=== PATIENT | female | born 1940 | race Caucasian/White ===

== ENCOUNTER 2017-09-06 13:15 | Inpatient (IN) | payer OTHER ==
[~2017-09-06] VITALS: Ht 167.6 cm; Wt 81.6 kg
--- NOTE | ~2017-09-06 | EEG ---
[facility] [place] [place] [address] ELECTROENCEPHALOGRAM Name: SE MOHAMUD Room #: 461-P ADM IN M.R.#: [id number] Admission: 09/06/17 Attend Phys: Maria Esther Moser Discharge: Date of : 44 Report #: [id number] THIS REPORT FOR: //name// CC: Maria Esther Mcgill DATE OF SERVICE: 09/07/2017 This patient is being evaluated for syncope. EEG was done by placing the electrodes by standard 10-20 system of electrode placement. Both referential and sequential montages were used for recording. Background activity in this patient's EEG is about 10 Hz and 30 microvolts. The patient went to sleep that is associated with bilaterally symmetrical sleep spindle and vertex sharp waves. Photic stimulation was unremarkable. Throughout the record, no active epileptiform activity was noticed. IMPRESSION: This patient's EEG is intermixed with moderate amount of theta range slowing. That is a nonspecific finding which can occur with dementia, encephalopathy, effect of psychotropic medication, etc. Clinical correlation is recommended. By: [id number] Matt Martinez MD /nt
--- NOTE | ~2017-09-06 | 2DMMODE ---
[facility] [address] [place] [address] 2 D/M-MODE ECHOCARDIOGRAM Name: SE MOHAMUD Room #: 461-P ADM IN M.R.#: [id number] Admission: 09/06/17 Attend Phys: Maria Esther Castaneda Discharge: Date of : 44 Date of Service: 09/07/17 1041 Report #: [id number] THIS REPORT FOR: //name// APPROVED REPORT Study performed: 09/07/2017 09:36:19 EXAM: Comprehensive 2D, Doppler, and color-flow Echocardiogram Patient Location: Echo lab Room #: [facility] Status: routine BSA: 1.89 HR: 78 bpm BP: 160/74 mmHg Rhythm: NSR Other Information Study Quality: Good Indications Syncope. Hx: HLP, CVA 2D Dimensions RVDd: 34.74 mm LVEF(%): 54.53 (>50%) IVSd: 11.80 (7-11mm) LVOT Diam: 18.47 (18-24mm) LVDd: 43.17 mm PWd: 12.21 (7-11mm) Ascending Ao: 30.10 (22-36mm) LVDs: 31.07 (25-40mm) Aortic Root: 29.85 mm Desir's LVEF: 54.53 % Volumes Left Atrial Volume (Systole) Single Plane 4CH: 83.65 mL Single Plane 2CH: 67.98 mL LA ESV Index: 43.00 mL/m2 Aortic Valve AoV Peak Erich.: 1.82 m/s AO Peak Gr.: 13.32 mmHg LVOT Max P.05 mmHg LVOT Max V: 1.33 m/s CARLI Vmax: 1.95 cm2 Mitral Valve E/A Ratio: 1.5 MV Decel. Time: 135.70 ms [facility] [place] [address] 2 D/M-MODE ECHOCARDIOGRAM Name: CADE,SE Room #: 461-P ADM IN M.R.#: [id number] Admission: 09/06/17 Attend Phys: Maria Esther Castaneda Discharge: Date of : 44 Date of Service: 09/07/17 1041 Report #: [id number] MV E Max Erich.: 1.41 m/s MV A Erich.: 0.95 m/s MV PHT: 39.35 ms IVRT: 65.74 ms Pulmonary Valve PV Peak Erich.: 0.95 m/s PV Peak Gr.: 3.59 mmHg Pulmonary Vein P Vein S: 0.75 m/s P Vein D: 0.77 m/s P Vein S/D Ratio: 0.97 Tricuspid Valve TR Peak Erich.: 3.23 m/s RAP Estimate: 5.00 mmHg TR Peak Gr.: 41.85 mmHg PA Pressure: 47.00 mmHg Left Ventricle The left ventricle is normal size. There is normal LV segmental wall motion. Mild concentric left ventricular hypertrophy. Left ventricular systolic function is normal. LVEF is 60-65%. Right Ventricle The right ventricle is normal size. The right ventricular systolic function is normal. Atria Left atrium is moderately dilated. The right atrium size is normal. Aortic Valve Aortic valve is calcified. Trace aortic regurgitation. There is no aortic valvular stenosis. Mitral Valve Mitral valve leaflets are mildly thickened. Moderate mitral annular calcification. Moderate mitral regurgitation. No evidence of mitral valve stenosis. Tricuspid Valve The tricuspid valve is normal in structure. Mild tricuspid regurgitation. Moderate pulmonary hypertension with an estimated PAP of 45-50mmHg. Pulmonic Valve [facility] [address] [place] [address] 2 D/M-MODE ECHOCARDIOGRAM Name: ES MOHAMUD Room #: 461-P [facility] IN M.R.#: [id number] Admission: 09/06/17 Attend Phys: Maria Esther Castaneda Discharge: Date of : 44 Date of Service: 09/07/17 1041 Report #: [id number] The pulmonary valve is normal in structure. Trace pulmonic regurgitation. Great Vessels The aortic root is normal in size. The ascending aorta is normal in size. IVC is normal in size and collapses >50% with inspiration. Pericardium There is no pericardial effusion. <Conclusion> The left ventricle is normal size. LVEF is 60-65%. Left atrium is moderately dilated. Aortic valve is calcified. Trace aortic regurgitation. Mitral valve leaflets are mildly thickened. Moderate mitral annular calcification. Moderate mitral regurgitation. No evidence of mitral valve stenosis. The tricuspid valve is normal in structure. Mild tricuspid regurgitation. Moderate pulmonary hypertension with an estimated PAP of 45-50mmHg. The pulmonary valve is normal in structure. Trace pulmonic regurgitation. There is no pericardial effusion. <ELECTRONICALLY SIGNED> By: Cj Hylton MD 09/07/17 [phone] Cj Hylton MD /INF
--- NOTE | ~2017-09-06 | EKG ---
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1940 Requested By: Edmundo Levi Order Number: [id number] MD: Sterling Garcia Measurements Intervals [place] Rate: 69 P: 56 VA: 168 QRS: 23 QRSD: 89 T: 39 QT: 470 QTc: 504 Interpretive Statements Sinus rhythm Borderline low voltage, extremity leads Anteroseptal infarct, old Prolonged QT interval No previous ECG available for comparison Electronically Signed On 09-07-2017 8:38:36 CDT by Sterling Garcia [email or web address] <ELECTRONICALLY SIGNED> By: Sterling Garcia MD, [facility] 09/07/17 0838 [id number] Sterling Garcia MD, [facility] /EPI
[2017-09-06 13:27] VITALS: BP 171/60
[2017-09-06] MEDS ORDERED: UNICOMPLEX M TA1 TA1 PO (13:38)
[2017-09-06] MEDS ORDERED: GABAPENTIN 100100 MG PO (13:39)
[2017-09-06] MEDS ORDERED: SYNTHROID88 MCG PO (13:39)
[2017-09-06] MEDS ORDERED: NYAMYC15 GM TOP (13:40)
[2017-09-06] MEDS ORDERED: SERTRALINE HCL50 MG PO (13:40)
[2017-09-06] MEDS ORDERED: NORPACE CR150 MG PO (13:40)
[2017-09-06] MEDS ORDERED: KETOCONAZOLE15 GM TOP (13:41)
[2017-09-06] MEDS ORDERED: PLAVIX 75 MG TA75 M1 PO (13:41)
[2017-09-06] MEDS ORDERED: CHILDREN'S ASPI81 MG PO (13:42)
[2017-09-06] MEDS ORDERED: NAMENDA 5 MG TAB5 M1 PO (13:42)
[2017-09-06] MEDS ORDERED: SEROQUEL 25 MG25 M1 PO (13:43)
[2017-09-06] MEDS ORDERED: ALLOPURINOL 10100 M1 PO (13:44)
[2017-09-06] MEDS ORDERED: LIPITOR20 MG PO (13:44)
[2017-09-06] MEDS ORDERED: IRON325 PO (13:45)
[2017-09-06] MEDS ORDERED: OMEPRAZOLE20 MG PO (13:45)
[2017-09-06] MEDS ORDERED: FLONASE 0.05%50 MCG NASAL (13:46)
[2017-09-06] MEDS ORDERED: VERAPAMIL E.R240 M1 PO (13:48)
[2017-09-06] MEDS ORDERED: ULTRAM 50MG TAB50 MG PO (13:48)
[2017-09-06 14:05] LABS: URINE BILIRUBIN NEGATIVE (Negative); URINE BLOOD NEGATIVE (Negative); URINE CLARITY CLEAR; URINE COLOR YELLOW; URINE GLUCOSE-RANDOM* NEGATIVE (Negative); URINE KETONES NEGATIVE (Negative); URINE LEUKOCYTES-REFLEX NEGATIVE (Negative); URINE NITRITE-REFLEX NEGATIVE (Negative); URINE PROTEIN (DIPSTICK) TRACE (Negative); URINE SPECIFIC GRAVITY >= 1.030 (1.005-1.035); URINE UROBILINOGEN 0.2 E.U./dl (0.2-1.0)
[2017-09-06 15:00] LABS: ABSOLUTE NEUTROPHILS 4.5 thou/uL (1.4-8.2); BASOPHILS 0.6 % (0.0-2.0); EOSINOPHILS 4.6 % (0.0-3.0); HEMATOCRIT 33.6 % (37.0-47.0); LYMPHOCYTES 17.2 % (24.0-44.0); MCH 29.4 pg (26.0-34.0); MCHC 32.6 g/dL (28.0-37.0); MCV 90.2 fL (80.0-100.0); PLATELET COUNT 166 thou/uL (150-400); POLYS 71.6 % (36.0-66.0); RBC 3.73 mil/uL (4.20-5.00); RDW 17.1 % (10.5-14.5); WBC 6.3 thou/uL (4.0-11.0)
[2017-09-06 15:09] LABS: ANION GAP 10 mmol/L (7-16); BUN 30 mg/dL (7-18); CALCIUM 8.7 mg/dL (8.5-10.1); CHLORIDE 106 mmol/L (98-107); CO2 29 mmol/L (21-32); CREATININE 1.4 mg/dL (0.6-1.0); GLUCOSE 131 mg/dL (74-106); POTASSIUM 3.9 mmol/L (3.5-5.1); SODIUM 145 mmol/L (136-145)
[2017-09-06 15:17] LABS: ALBUMIN 3.7 g/dL (3.4-5.0); SGOT 21 U/L (15-37); SGPT 21 U/L (30-65); TOTAL BILIRUBIN 0.3 mg/dL (<0.1-1.0); TOTAL PROTEIN 7.1 g/dL (6.4-8.2); TROPONIN-I <0.06 ng/mL (<0.06)
[2017-09-06 16:54] VITALS: BP 158/62
[2017-09-06 17:45] VITALS: BP 178/71
[2017-09-06 20:00] VITALS: BP 151/60
[2017-09-07 04:00] VITALS: BP 194/79
[2017-09-07 07:45] VITALS: BP 160/74
[2017-09-07 17:00] VITALS: BP 120/69
[2017-09-07 19:52] VITALS: BP 173/65
[2017-09-08 04:08] VITALS: BP 180/72
[2017-09-08 07:40] VITALS: BP 153/62
[2017-09-08] MEDS ORDERED: SERTRALINE HCL50 MG PO (10:07)
[2017-09-08 13:36] VITALS: BP 153/62
[2017-09-08 15:30] VITALS: BP 153/62
== END 2017-09-08 18:32 | disposition home or self-care (01) | DRG 312 ==
LOC: ER 13:15 → 4W 15:58 → EROBS 15:58 → 4W 17:12 → ENTRNSPT 09-08 17:56 → 4W 09-08 18:32
PROVIDERS: Emergency Medicine
DX: R55 Syncope and collapse (principal); E43 Unspecified severe protein-calorie malnutrition; R29.6 Repeated falls; D16.8 Benign neoplasm of pelvic bones, sacrum and coccyx; F39 Unspecified mood [affective] disorder; M99.85 Other biomechanical lesions of pelvic region; E03.9 Hypothyroidism, unspecified; M10.9 Gout, unspecified; M19.90 Unspecified osteoarthritis, unspecified site; F41.9 Anxiety disorder, unspecified; F32.9 Major depressive disorder, single episode, unspecified; G47.00 Insomnia, unspecified; E78.00 Pure hypercholesterolemia, unspecified; F03.90 Unspecified dementia, unspecified severity, without behavioral disturbance, psychotic disturbance, mood disturbance, and anxiety; I10 Essential (primary) hypertension; E78.5 Hyperlipidemia, unspecified; D50.9 Iron deficiency anemia, unspecified; Z88.0 Allergy status to penicillin; Z88.1 Allergy status to other antibiotic agents; Z88.8 Allergy status to other drugs, medicaments and biological substances; Z87.891 Personal history of nicotine dependence; Z86.73 Personal history of transient ischemic attack (TIA), and cerebral infarction without residual deficits; Z79.82 Long term (current) use of aspirin; Z79.899 Other long term (current) drug therapy; Z90.710 Acquired absence of both cervix and uterus; Z68.29 Body mass index [BMI] 29.0-29.9, adult
CPT/HCPCS: 10045